=== PATIENT | female | born 1965 ===

== ENCOUNTER 2018-06-07 17:57 | Emergency (ER) | payer MEDICAID ==
--- NOTE | 2018-06-07 19:53 | C.PDOC ---
History Of Present Illness 53 year old female with Hx of HTN, morbidly obese, presents with left sided chest pain and elevated blood pressure. Patient states it feels like "gas pain" to luq, she has no Hx of previous MA or stress test. She reports minimal pain now, reportedly given aspirin SYSTEM ANALYST. Denies fever or other complaints. Time Seen by Provider: 06/07/18 19:45 Chief Complaint (Nursing): Chest Pain History Per: Patient History/Exam Limitations: no limitations Onset/Duration Of Symptoms: Hrs Current Symptoms Are (Timing): Still Present Associated Symptoms: denies: Nausea, Dyspnea, Diaphoresis, Syncope Exacerbating Factors: None Recent travel outside of the [place]: No Past Medical History Reviewed: Historical Data, Nursing Documentation, Vital Signs Vital Signs: Last Vital Signs Temp 98.4 F 06/07/18 18:23 Pulse 58 L 06/07/18 18:23 Resp 18 06/07/18 18:23 BP 182/119 H 06/07/18 18:23 Pulse Ox 98 06/07/18 18:23 - Medical History PMH: Depression, HTN Family History: States: No Known Family Hx - Social History Hx Alcohol Use: Yes Hx Substance Use: Yes - Immunization History Hx Tetanus Toxoid Vaccination: No Hx Influenza Vaccination: No Hx Pneumococcal Vaccination: No Review Of Systems Constitutional: Negative for: Fever, Chills Cardiovascular: Positive for: Chest Pain. Negative for: Palpitations Respiratory: Negative for: Cough, Shortness of Breath Gastrointestinal: Negative for: Nausea, Vomiting Neurological: Negative for: Weakness, Numbness Physical Exam - Physical Exam Appears: Non-toxic, Other (Morbidly obese) Skin: Normal Color, Warm Head: Atraumatic, Normacephalic Eye(s): bilateral: Normal Inspection Oral Mucosa: Moist Neck: Normal, Supple Chest: Symmetrical, No Tenderness Cardiovascular: Rhythm Regular Respiratory: Normal Breath Sounds, No Rales, No Rhonchi, No Wheezing Gastrointestinal/Abdominal: Soft, No Tenderness Neurological/Psych: Oriented x3, Normal Speech ED Course And Treatment - Laboratory Results Result Diagrams: 06/07/18 19:56 06/07/18 19:56 ECG: Interpreted By Me, Viewed By Me ECG Rhythm: Sinus Bradycardia ECG Interpretation: Normal Interpretation Of ECG: No ST/T wave changes Rate From EC O2 Sat by Pulse Oximetry: 98 Medical Decision Making Medical Decision Making: atypical cp - ro acs, pt reports gas pain Plan: * EKG * Blood work * UA * Protonix labs neg. cxr neg as read by me. no ekg changes low heart score. no preivous cardiac hx. declines observation in hospital. asking for dc all symptoms resolved in er. pt more luq than cp. Disposition - Disposition Referrals: Glenn Stoddard MD [Staff Provider] - [facility] [Outside] [facility] [Outside] Disposition: HOME/ ROUTINE Disposition Time: 21:47 Condition: STABLE Additional Instructions: you are declining observationin hospital. return to any er with worsening. Prescriptions: Famotidine [Pepcid] 20 mg PO DAILY #20 tab Instructions: Chest Pain (DC) Forms: Paper[employer]li (Spanish) Print Language: AUSTRIAN - Clinical Impression Clinical Impression: Chest pain - Scribe Statement The provider has reviewed the documentation as recorded by the Scribe Timur Vera All medical record entries made by the Scribe were at my direction and personally dictated by me. I have reviewed the chart and agree that the record accurately reflects my personal performance of the history, physical exam, medical decision making, and the department course for this patient. I have also personally directed, reviewed, and agree with the discharge instructions and disposition.
[2018-06-07 20:02] LABS: BASO % 0.6 % (0.0-2.0); EOS % 0.8 % (0.0-4.0); HEMOGLOBIN 13.3 g/dL (11.0-16.0); LYMPH % 39.1 % (20.0-40.0); MEAN CELL VOLUME 96.5 fL (81.0-99.0); MEAN CORPUSCULAR HEMOGLOBIN 31.2 pg (27.0-31.0); MEAN CORPUSCULAR HGB CONC 32.3 g/dL (33.0-37.0); MEAN PLATELET VOLUME 8.2 fL (7.2-11.7); MONO # 0.4 K/uL (0.0-0.8); MONO % 7.2 % (0.0-10.0); NEUT # 2.7 K/uL (1.8-7.0); NEUT % 52.3 % (50.0-75.0); NRBC % 0.1 % (0.0-2.0); RBC 4.26 Mil/uL (3.80-5.20); RED CELL DISTRIBUTION WIDTH 13.7 % (11.5-14.5); WHITE BLOOD COUNT 5.1 K/uL (4.8-10.8)
[2018-06-07 20:12] LABS: PROTHROMBIN TIME 10.6 SECONDS (9.7-12.2)
[2018-06-07 20:21] LABS: BLOOD UREA NITROGEN 13 mg/dL (7-17); CALCIUM 9.1 mg/dl (8.6-10.4); GFR NON-AFRICAN AMERICAN > 60; LIPASE 28 U/L (23-300)
[2018-06-07 20:24] LABS: ALB/GLOB RATIO 1.6 (1.0-2.1); ALBUMIN 4.5 g/dL (3.5-5.0); ALT/SGPT 25 U/L (9-52); AST/SGOT 39 U/L (14-36)
[2018-06-07 22:12] VITALS: BP 185/101; PULSE 61; RESP 16; TEMP 98
[2018-06-07 22:54] VITALS: O2SAT 98
--- NOTE | 2018-06-08 11:12 | RAD ---
Date of service: 06/07/2018 HISTORY: Chest pain COMPARISON: No prior. FINDINGS: LUNGS: The lungs are well inflated and clear. PLEURA: No pleural effusions or pneumothorax. CARDIOVASCULAR: The heart is normal in size. No aortic atherosclerotic calcifications present. OSSEOUS STRUCTURES: Within normal limits for the patient's age. VISUALIZED UPPER ABDOMEN: Normal. OTHER FINDINGS: None. IMPRESSION: No active pulmonary disease.
== END 2018-06-07 22:13 | disposition home or self-care (01) ==
LOC: C.ER 17:57
DX: R07.9 Chest pain, unspecified (principal); I10 Essential (primary) hypertension; E66.01 Morbid (severe) obesity due to excess calories
CPT/HCPCS: 71045; 80053; 83690; 84484; 85025; 85610; 85730; 96374; 99285; C9113